=== PATIENT | female | born 1955 | race Caucasian/White ===

== ENCOUNTER 2023-01-27 09:51 | Outpatient (OUT) | payer MEDICARE, SELFPAY ==
--- NOTE | 2023-01-27 10:04 | XR_ITS ---
The [address] [address] Patient Name: LIAM DOUGLAS MRN: [id number] date: 1955 Sex: F Assigned Patient Location: [place] Current Patient Location: [place] Accession/Order Number: [id number] Exam Date: 01/27/2023 10:30 Report Date: 01/27/2023 14:03 At the request of: KRISSY BENDER Procedure: XR mandible min 4V PROCEDURE: XR mandible min 4V HISTORY: Jaw pain R68.84 ; increasing right jaw and soft tissue pain COMPARISON: None. FINDINGS: BONES:Degenerative changes of the temporomandibular joints bilaterally. No fracture or dislocation. SOFT TISSUES:Skin surface marker localizing the patient's area of tenderness is present inferior to the anterior right mandible without appreciable soft tissue abnormality or radiopaque foreign body. EFFUSION:None visible. OTHER: Negative. XR/XR mandible min 4V IMPRESSION: 1. No appreciable bone abnormality to account for patient's symptoms. 2. No radiopaque foreign body or visible soft tissue abnormality in region of patient's tenderness. Electronically authenticated by: MIC TOMLINSON Date: 01/27/2023 14:03
--- NOTE | 2023-01-27 10:04 | US_ITS ---
The [address] [address] Patient Name: LIAM DOUGLAS MRN: [id number] date: 1955 Sex: F Assigned Patient Location: [place] Current Patient Location: [place] Accession/Order Number: [id number] Exam Date: 01/27/2023 10:05 Report Date: 01/27/2023 14:27 At the request of: KRISSY BENDER Procedure: US soft tissue head and neck EXAM: US soft tissue head and neck HISTORY: Cervical pain M54.2 COMPARISON: XR mandible 01/27/2023 TECHNIQUE: Percutaneous ultrasound evaluation of right submandibular region of neck FINDINGS: No mass, fluid collection, or suspicious findings. Normal appearance of the submandibular salivary gland. US/US soft tissue head and neck IMPRESSION: 1. No abnormal or suspicious findings to account for patient's symptoms. Electronically authenticated by: MIC TOMLINSON Date: 01/27/2023 14:27
== END 2023-01-27 09:52 | disposition home or self-care (01) ==
LOC: US 09:58
PROVIDERS: PCP Family Medicine; Visit Provider Family Medicine
DX: M54.2 Cervicalgia (principal); R68.84 Jaw pain
CPT/HCPCS: 70110; 76536

== ENCOUNTER 2023-10-08 11:15 | Outpatient (OUT) | payer MEDICARE, SELFPAY ==
[2023-10-08 11:45] LABS: Basophils Absolute Auto 0.1 10^3/uL (0.0-0.1); Basophils Percent Auto 0.8 % (0.2-2.0); Eosinophils Absolute Auto 0.5 10^3/uL (0.0-0.7); Eosinophils Percent Auto 5.9 % (0.9-7.0); Hematocrit 41.9 % (36.0-48.0); Hemoglobin 13.5 g/dL (12.0-16.0); Immature Granulocytes Abs Auto 0.02 10^3/uL (0.00-0.03); Immature Granulocytes Pct Auto 0.2 % (0.0-0.5); Lymphocytes Absolute Auto 2.3 10^3/uL (1.2-3.8); Lymphocytes Percent Auto 27.1 % (20.5-60.0); Mean Corpuscular HGB Conc 32.2 g/dL (29.9-35.2); Mean Corpuscular Hemoglobin 29.6 pg (26.7-34.0); Mean Corpuscular Volume 91.9 fL (81.0-99.0); Mean Platelet Volume 11.4 fL (9.5-13.5); Monocytes Absolute Auto 0.6 10^3/uL (0.3-0.8); Monocytes Percent Auto 7.4 % (1.7-12.0); Neutrophils Absolute Auto 4.9 10^3/uL (1.4-6.5); Neutrophils Percent Auto 58.6 % (43.0-75.0); Platelet Count 283 10^3/uL (150-450); Red Blood Count 4.56 10^6/uL (4.20-5.40); Red Cell Distribution Width 12.8 % (11.0-15.0); White Blood Count 8.4 10^3/uL (4.0-11.0)
[2023-10-08 12:15] LABS: Anion Gap 9.8; BUN Creatinine Ratio 21.7; Calcium 9.7 mg/dL (8.5-10.1); Carbon Dioxide 34.3 mmol/L (21.0-32.0); Chloride 100 mmol/L (98-107); Estimated GFR (African America >60 (>=60); Estimated GFR (Non-African Ame >60 (>=60); Glucose 97 mg/dL (74-106); Potassium 4.1 mmol/L (3.5-5.1); Sodium 140 mmol/L (136-145); Uric Acid 8.7 mg/dL (2.6-6.0)
== END 2023-10-08 11:16 | disposition home or self-care (01) ==
LOC: LAB 11:18
PROVIDERS: PCP Family Medicine; Visit Provider Family Medicine
DX: E55.9 Vitamin D deficiency, unspecified (principal); I10 Essential (primary) hypertension; M25.476 Effusion, unspecified foot
CPT/HCPCS: 36415; 80048; 82306; 84550; 85025